=== PATIENT | female | born 1990 | race Caucasian/White ===

== ENCOUNTER → 2021-05-08 | Outpatient (CLI) | payer OTHER | LOC: EXRD 15:13 | DX: M79.641 Pain in right hand (principal); M79.642 Pain in left hand; E59 Dietary selenium deficiency; M54.9 Dorsalgia, unspecified; G89.29 Other chronic pain; M47.817 Spondylosis without myelopathy or radiculopathy, lumbosacral region | CPT/HCPCS: 72110; 73130 ==